=== PATIENT | female | born 1965 | race Caucasian/White ===

== ENCOUNTER 2023-11-26 22:11 | Emergency (ER) | payer OTHER ==
[~2023-11-26] VITALS: Ht 157.5 cm; Wt 76.0 kg
[2023-11-26 23:00] VITALS: BP 150/94; PULSE 80; TEMP 98.7; O2SAT 100
[2023-11-26 23:53] LABS: BASOPHILS % 0.6 % (0.0-2.0); EOSINOPHILS % 1.3 % (0.0-5.0); HEMATOCRIT. 44.6 % (36.0-48.0); HEMOGLOBIN. 14.6 g/dL (12.0-16.0); LYMPHOCYTES % 22.8 % (20.0-50.0); MEAN CORPUSCULAR HEMOGLOBIN 31.7 pg (28.0-32.0); MEAN CORPUSCULAR HGB CONC 32.8 g/dL (31.0-37.0); MEAN CORPUSCULAR VOLUME 96.8 fL (81.0-99.0); MEAN PLATELET VOLUME 10.2 fl (7.4-10.4); MONOCYTES % 5.5 % (2.0-8.0); NEUTROPHILS % 69.8 % (40.0-76.0); PLATELET 240 x1000/uL (130-400); RED BLOOD CELL COUNT 4.61 mill/uL (4.2-5.4); RED CELL DISTRIBUTION WIDTH 14.1 % (11.6-14.6)
[2023-11-26 23:57] LABS: CHLORIDE 108 mEq/L (98-107); POTASSIUM 3.9 mEq/L (3.5-5.1); SODIUM 141 mEq/L (136-145)
[2023-11-26 23:58] LABS: CALCIUM 9.2 mg/dL (8.7-10.4); CARBON DIOXIDE 25 mEq/L (21-32)
[2023-11-27 00:03] LABS: CREATININE 0.5 mg/dL (0.6-1.0); GLUCOSE 130 mg/dL (70-105); UREA NITROGEN BLOOD 12 mg/dL (9-23)
[2023-11-27 00:05] LABS: ALANINE AMINOTRANSFERASE 22 IU/L (10-49); ALBUMIN 4.6 g/dL (3.2-4.8); ASPARTATE AMINOTRANSFERASE 17 IU/L (<34)
[2023-11-27 00:06] LABS: BILIRUBIN TOTAL 0.5 mg/dL (0.1-1.0); PROTEIN TOTAL 8.1 g/dL (6.0-8.3)
[2023-11-27 00:12] LABS: BILIRUBIN DIRECT < 0.1 mg/dL (<=3.0)
[2023-11-27] MEDS: ONDANSETRON HCL 4MG TABLET PO ONE (00:30)
[2023-11-27 01:00] VITALS: RESP 20
== END 2023-11-27 01:25 | disposition home or self-care (01) ==
LOC: ER 22:11
DX: R11.2 Nausea with vomiting, unspecified (principal); E11.9 Type 2 diabetes mellitus without complications; Z88.0 Allergy status to penicillin
CPT/HCPCS: 99283; 80076; 80048; 83690; 85025; 36415; Q0162